=== PATIENT | male | born 1960 | race Caucasian/White ===

== ENCOUNTER 2023-10-23 01:31 | Emergency (ER) | payer BC ==
[2023-10-23 02:19] LABS: #Basophils 0.03 10x3/uL (0.0-0.2); %Basophils 0.4 % (0.0-1.0); %Eosinophils 3.2 % (0.0-10.0); %Lymphocytes 21.2 % (21.0-51.0); %Neutrophils 67.8 % (42.0-75.0); Hematocrit 45.4 % (42.0-52.0); Hemoglobin 15.5 g/dL (14.0-18.0); Mean Corpuscular HGB CONC 34.1 g/dL (32.0-36.0); Mean Corpuscular Hemoglobin 31.2 pg (27.0-31.0); Mean Corpuscular Volume 91.3 fL (78.0-98.0); Mean Platelet Volume 9.6 fL (7.4-10.4); Platelet Count 188 10x3/uL (130-400); RBC Distribution Width 12.4 % (11.5-14.5); Red Blood Cell (RBC) Count 4.97 mill/uL (4.70-6.10)
[2023-10-23 02:43] LABS: Troponin I Less than 0.010 ng/mL (< 0.028)
[2023-10-23 02:44] LABS: ALT (SGPT) 20 U/L (8-55); AST (SGOT) 23 U/L (5-34); Alkaline Phosphatase 61 U/L (40-110); Anion Gap 13 mmol/L (10-20); BUN (Urea Nitrogen) 15 mg/dL (8.4-25.7); Bilirubin, Total 0.5 mg/dL (0.2-1.2); Calc. Creatinine Clearance 0 mL/min (70-130); Calcium 8.6 mg/dL (7.8-10.44); Carbon Dioxide 21 mmol/L (23-31); Chloride 102 mmol/L (98-107); Estimated GFR 88; Globulin 2.9 g/dL (2.4-3.5); Glucose 90 mg/dL (80-115); Potassium 3.8 mmol/L (3.5-5.1); Protein, Total 6.9 g/dL (5.8-8.1); Sodium 132 mmol/L (136-145)
[2023-10-23] MEDS ORDERED: Meclizine HCl 25 MG TAB ONE (05:15)
[2023-10-23] MEDS ORDERED: Acetaminophen 500 MG TAB ONE (05:15)
[2023-10-23] MEDS ORDERED: Ondansetron PF 4 MG/2 ML Vial ONE (05:31)
[2023-10-23] MEDS ORDERED: Iopamidol 370 76% 100 ML VIAL ONE (09:03)
== END 2023-10-23 08:00 | disposition home or self-care (01) ==
LOC: ERS 01:31
DX: R42 Dizziness and giddiness (principal); R51.9 Headache, unspecified; R29.700 NIHSS score 0
CPT/HCPCS: 36415; 70496; 70498; 71045; 80053; 84484; 85025; 93005; 96374; J2405